=== PATIENT | female | born 1945 | race Asian ===

== ENCOUNTER 2025-08-18 03:11 | Emergency (ER) | payer MEDICAID ==
[~2025-08-18] VITALS: Ht 160 cm; Wt 50.0 kg
[2025-08-18 03:28] VITALS: BP 129/76; PULSE 78; RESP 16; TEMP 97.8; O2SAT 98
== END 2025-08-18 03:46 | disposition home or self-care (01) ==
LOC: EDBD 03:11 → ER 03:11
DX: R06.09 Other forms of dyspnea (principal); F03.90 Unspecified dementia, unspecified severity, without behavioral disturbance, psychotic disturbance, mood disturbance, and anxiety
CPT/HCPCS: 99283